=== PATIENT | female | born 1995 | race Caucasian/White ===

== ENCOUNTER 2018-11-17 19:57 | Emergency (ER) | payer SELFPAY, OTHER ==
[2018-11-18] MEDS: KETOROLAC 30 MG INJ IM (01:21)
== END 2018-11-18 02:55 | disposition home or self-care (01) ==
LOC: FTE 19:57
DX: S52.122A Displaced fracture of head of left radius, initial encounter for closed fracture (principal); S52.132A Displaced fracture of neck of left radius, initial encounter for closed fracture; W18.39XA Other fall on same level, initial encounter; Y92.009 Unspecified place in unspecified non-institutional (private) residence as the place of occurrence of the external cause
CPT/HCPCS: 70480; 73030; 73080-LT; 81025; 96372; 99285-25